=== PATIENT | male | born 1995 | race Caucasian/White ===

== ENCOUNTER 2019-05-06 13:19 | Emergency (ER) | payer OTHER ==
--- NOTE | 2019-05-06 13:48 | ED Physician Documentation ---
History of Present Illness - Stated complaint Stated Complaint: SOA/COUGH/WEAKNESS - Chief complaint Chief Complaint: General - Additonal information Additional information: This is a 23-year-old male who is typically healthy who presents with a cough ongoing for about 18 days. He began to have some eye irritation, cough, nasal congestion on 18 April, his other symptoms improved but his cough is continued. He produces a small amount of light sputum intermittently. His breathing feels a bit heavy at times. No hemoptysis. No history of asthma or other lung conditions, though he states he was diagnosed with pneumonia in the past. Review of Systems Constitutional: reports: Fatigue. denies: Fever Cardiac: denies: Chest pain / pressure Respiratory: reports: Cough Skin: denies: Rash PD PAST MEDICAL HISTORY - Past Medical History Past Medical History: No Cardiovascular: None Respiratory: None Neuro: None Endocrine/Autoimmune: None GI: None : None HEENT: None Psych: None Musculoskeletal: None Derm: None - Past Surgical History Past Surgical History: Yes General: Appendectomy - Present Medications Home Medications: Ambulatory Orders Medication Instructions Recorded Confirmed Benzonatate [Tessalon Perle] 100 - 200 mg PO TID PRN #30 capsule 05/06/19 - Allergies Allergies/Adverse Reactions: Allergies Allergy/AdvReac Type Severity Reaction Status Date / Time No Known Drug Allergies Allergy Verified 05/06/19 13:25 - Social History Does the pt smoke?: Yes Smoking Status: Current every day smoker Does the pt drink ETOH?: Yes Does the pt have substance abuse?: No - Immunizations Immunizations are current?: Yes - POLST Patient has POLST: No PD ED PE NORMAL - Vitals Vital signs reviewed: Yes - General General: Alert and oriented X 3, No acute distress - HEENT HEENT: PERRL, Other (Posterior pharynx is erythematous, No exudate) - Neck Neck: Supple, no meningeal sign - Cardiac Cardiac: RRR - Respiratory Respiratory: No respiratory distress, Clear bilaterally, Other (Intermittent cough) - Abdomen Abdomen: Soft, Non distended - Derm Derm: Warm and dry - Extremities Extremities: No deformity - Neuro Neuro: Alert and oriented X 3 - Psych Psych: Normal mood, Normal affect Results - Vitals Vitals: Oxygen O2 Source Room air - Rads (name of study) CXR Radiology: Other (normal 2 veiw chest) PD MEDICAL DECISION MAKING - ED course ED course: Pt is well appearing, excellent O2 saturation, unremarkable exam. His CXR is normal. No signs of pneumonia or other more serious cause of cough at this time. This may be a post-viral cough. He is very well appearing. I prescribed tessalon perles and discussed supportive care, PCP follow up, and return precautions, and pt was discharged home. Departure - Departure Disposition: 01 Home, Self Care Clinical Impression: Upper respiratory infection Qualifiers: URI type: unspecified viral URI Qualified Code(s): J06.9 - Acute upper respiratory infection, unspecified Condition: Good Instructions: ED Viral Syndrome Prescriptions: Benzonatate [Tessalon Perle] 100 - 200 mg PO TID PRN #30 capsule PRN Reason: Cough Comments: Your x-ray today does not show signs of a pneumonia, this is likely a post viral cough, or viral bronchitis/inflammation of the upper airways. Try the Tessalon Perles for cough. You may also take Tylenol 650 mg and ibuprofen 600 mg every 6 hours as needed for discomfort or pain. If you are developing difficulty breathing, coughing up blood in your sputum, or other concerning symptoms please return to the emergency department. Discharge Date/Time: 05/06/19 14:59
--- NOTE | 2019-05-06 14:31 | XRAY Report ---
Reason: cough x 18 days, fatigue Procedure Date: 05/06/2019 Accession Number: [id number] / [id number] Procedure: XR - Chest 2 View X-Ray CPT Code: 56509 Final Report FULL RESULT: EXAM: CHEST RADIOGRAPHY EXAM DATE: 05/06/2019 02:03 PM. CLINICAL HISTORY: Cough x 18 days, fatigue. COMPARISON: None. TECHNIQUE: 2 views. FINDINGS: Lungs/Pleura: No focal opacities evident. No pleural effusion. No pneumothorax. Normal volumes. Mediastinum: Heart and mediastinal contours are unremarkable. Other: None. IMPRESSION: Normal 2-view chest radiography. [facility]
[2019-05-06 14:56] VITALS: BP 125/87
== END 2019-05-06 14:59 | disposition home or self-care (01) ==
LOC: ED 13:19
DX: J06.9 Acute upper respiratory infection, unspecified (principal); F17.200 Nicotine dependence, unspecified, uncomplicated
CPT/HCPCS: 71046; 99283; 99284